=== PATIENT | female | born 1955 | race Caucasian/White ===

== ENCOUNTER 2021-11-10 01:09 | Outpatient (CLI) | payer MEDICARE, BC, SELFPAY ==
[2021-11-10 12:47] LABS: Source Nasal/Nares
[2021-11-10 16:47] LABS: COVID-19 PCR Negative (Negative)
== END 2021-11-10 01:10 | disposition home or self-care (01) ==
LOC: LBO 01:10
PROVIDERS: PCP Internal Medicine; Visit Provider Podiatrist
DX: Z20.822 Contact with and (suspected) exposure to COVID-19 (principal)
CPT/HCPCS: 87635

== ENCOUNTER 2021-11-12 06:16 | Day surgery (SDC) | payer MEDICARE, BC, SELFPAY ==
--- NOTE | 2021-11-11 19:48 | W.PM.HP.N ---
Date of service: 11/12/21 Time of Service: 07:00 History of Present Illness History of Present Illness Chief Complaint: recurrring Abscess, left hallux Narrative: recurring infection and abscess formation of the left hallux with history of prior matrixectomy. [facility] Medical History Acute sinusitis Ankylosis of left knee joint Asthma Bladder dysfunction bladder muscle dysfunction Dystrophia unguium Enthesopathy Fusion of toes hx of right great toe fusion surgery HLD (hyperlipidemia) Lack of energy Overweight Pneumonia Sciatica Surgical History History of foot surgery Hx of hysterectomy Hx of total knee replacement Social History Smoking/Tobacco Use Status: Never Smoking risk assessment performed?: Yes Alcohol Intake: never Drug use: Never Substance use type: does not use Do you feel safe at home: Yes Do you feel safe in your relationship?: Yes Meds Allergies and Home Medications Allergies Allergy/AdvReac Type Severity Reaction Status Date / Time latex Allergy Intermediate Skin Rash Unverified 11/11/21 13:56 Penicillins Allergy Intermediate Anaphylaxis Unverified 11/11/21 13:56 pollen extracts Allergy Intermediate Other (See Unverified 11/11/21 13:56 Comment) shellfish derived Allergy Intermediate Anaphylaxis Unverified 11/11/21 13:56 Tetracyclines Allergy Intermediate Other (See Unverified 11/11/21 13:56 Comment) Home Medications Medication Instructions Recorded Confirmed Type atorvastatin 10 mg tablet 10 mg PO DAILY 11/11/21 11/11/21 History cetirizine 10 mg capsule 10 mg PO DAILY 11/11/21 11/11/21 History estradiol 1 appful VAGINAL DAILY 11/11/21 11/11/21 History famotidine-Ca carb-mag hydrox 10 1 tab PO DAILY PRN 11/11/21 11/11/21 History mg-800 mg-165 mg chewable tablet (Tums Dual Action (famotidine)) fluticasone propionate 50 50 spray INTRANASAL DAILY 11/11/21 11/11/21 History mcg/actuation nasal spray,suspension meloxicam 7.5 mg tablet 7.5 mg PO HS 11/11/21 11/11/21 History multivit with 1 tab PO DAILY 11/11/21 11/11/21 History cmisxykk-uptj-TT-lutein 8 mg iron-400 mcg-300 mcg tablet (Centrum Silver Women) oxybutynin chloride 5 mg tablet 5 mg PO DAILY 11/11/21 11/11/21 History Exam Narrative Exam Narrative: Heads normocephalic eyes PERRLA Hearing is adequate Uvula is mid line Heart had RRR, No murmurs, gallops or rubs noted Lung riley are clear Abdomen is soft, BS x 4 Peripheral pulses are 2/4, SFT < 3 sec. No edema Derm exam: scarring is noted dorsal medially to the proximal nail fold left hallux. No active signs of infection Muscle gps are 5/5 Skeletal exam reveals advanced degenerative changes of the MPJ left foot Neurological exam: grossly intact Impressions: recurring infection left hallux Plan: exploration of the affected region of the left hallux with removal and repair of affected tissues. She is fully aware of the potential for pain, scarring, infection, recurrence, nerve injury, and the need for further surgery. All questions have been answered, informed consent obtained.
[2021-11-12 06:15] VITALS: BP 133/76; PULSE 61; RESP 18; TEMP 36.5; O2SAT 98
[2021-11-12] MEDS: Lactated Ringers 1,000 ML 80 ML IV (06:50)
--- NOTE | 2021-11-12 07:10 | ANES.PREOP_ITS ---
General Info Date of Service Date Performed: 11/12/21 Height: 5 ft 5 in Weight: 76 kg Body Mass Index (BMI): 27.8 Surgical Procedure: Operation Date: 11/12/21 07:40 Proposed Procedure Side Surgeon p I&D Lt Hallux Left Freddy Martin DPM Meds Allergies and Home Medications Allergies Allergy/AdvReac Type Severity Reaction Status Date / Time latex Allergy Intermediate Skin Rash Unverified 11/11/21 13:56 Penicillins Allergy Intermediate Anaphylaxis Unverified 11/11/21 13:56 pollen extracts Allergy Intermediate Other (See Unverified 11/11/21 13:56 Comment) shellfish derived Allergy Intermediate Anaphylaxis Unverified 11/11/21 13:56 Tetracyclines Allergy Intermediate Other (See Unverified 11/11/21 13:56 Comment) Home Medication Medication Instructions Recorded atorvastatin 10 mg tablet 10 mg PO DAILY 11/11/21 cetirizine 10 mg capsule 10 mg PO DAILY 11/11/21 estradiol 1 appful VAGINAL DAILY 11/11/21 famotidine-Ca carb-mag hydrox 10 1 tab PO DAILY PRN 11/11/21 mg-800 mg-165 mg chewable tablet (Tums Dual Action (famotidine)) fluticasone propionate 50 50 spray INTRANASAL DAILY 11/11/21 mcg/actuation nasal spray,suspension meloxicam 7.5 mg tablet 7.5 mg PO HS 11/11/21 multivit with 1 tab PO DAILY 11/11/21 dmpgjyks-jsni-KD-lutein 8 mg iron-400 mcg-300 mcg tablet (Centrum Silver Women) oxybutynin chloride 5 mg tablet 5 mg PO DAILY 11/11/21 Current Visit Medications: Current Medications Generic Name Dose Route Start Last Admin Trade Name Freq PRN Reason Stop Dose Admin Sodium Chloride 500 mls @ 0 mls/hr 11/12/21 06:00 Saline 500ml Bag IV PRN PRN As Directed Clindamycin Phosphate/Dextrose 600 mg in 50 mls @ 100 mls/hr 11/12/21 06:00 Cleocin In D5w IVPB 11/12/21 18:00 PREOP MARCELLUS Ringer's Solution 1,000 mls @ 80 mls/hr 11/12/21 06:00 11/12/21 06:50 IV 12/11/21 23:59 80 mls/hr INFUSION MARCELLUS Administration IV Miscellaneous Supplies 1 each 11/12/21 06:00 Iv Access IV DIRECTED [facility] Povidone Iodine 0 ml 11/12/21 06:00 Povidone-Iodine Soln. 118 Ml Btl TP DIRECTED MARCELLUS Sodium Chloride 0 ml 11/12/21 06:00 Normal Saline Flush 10 Ml Syr IVP PRN PRN Sodium Chloride 0 ml 11/12/21 06:00 Normal Saline 10 Ml Vial IJ 12/11/21 23:59 DIRECTED PRN Sterile Water 0 ml 11/12/21 06:00 Water,Injection,Sterile 10 Ml Vial IJ 12/11/21 23:59 DIRECTED PRN PFSH Medical History Medical History Acute sinusitis Ankylosis of left knee joint Asthma Bladder dysfunction bladder muscle dysfunction Dystrophia unguium Enthesopathy Fusion of toes hx of right great toe fusion surgery HLD (hyperlipidemia) Lack of energy Overweight Pneumonia Sciatica Surgical History Surgical History History of foot surgery Hx of hysterectomy Hx of total knee replacement Tobacco Smoking/Tobacco Use Status: Never Alcohol Alcohol Intake: never Substance Use Substance use: Never Substance use type: does not use Vital Signs and Lab Results Vital Signs Most Recent Vital Signs in EMR: Most Recent Vital Signs Temp Pulse Resp BP Pulse Ox 36.5 C 61 18 133/76 98 11/12/21 06:15 11/12/21 06:15 11/12/21 06:15 11/12/21 06:15 11/12/21 06:15 Lab Results Blood Type / Crossmatch: No Data to Display Complete Blood Count: No Data to Display Complete Metabolic Panel: No Data to Display Liver Function Panel: 2 No Data to Display Coagulation Panel: No Data to Display Cardiac Panel: No Data to Display Arterial Blood Gas: No Data to Display Venous Blood Gas: No Data to Display Pancreas Panel: No Data to Display Thyroid Panel: No Data to Display Infectious Disease: Coronavirus (COVID-19)(PCR) Negative (Negative) 11/10/21 10:16 11/10/21 Coronavirus 2019 Source Nasal/Nares 11/10/21 10:16 11/10/21 Blood Cultures: No Data to Display Toxicology Panel: No Data to Display Anesthesia Assessment and Plan Anesthesia History Personal History: Delayed Emergence Family History: No Family History of Anesthesia Complications Exercise Tolerance Exercise Tolerance: Metabolic Equivalents>4 Pertinent Negatives Pertinent Negatives: No Symptoms of GERD, No Major Cardiovascular Symptoms or Complaints, No Major Pulmonary Symptoms or Complaints and No History of CVA/TIA Cardiac & Pulmonary Exam Cardiac Exam: Normal S1/S2 Heart Sounds Pulmonary Exam: Clear Bilateral Breath Sounds Implantable Cardiac Device Does patient have a Pacemaker or an ICD?: No Airway Exam Known Difficult Airway: No Mallampati Class: 2 Mouth Opening: Normal (> 3cm) Thyromental Distance: Greater than 3 cm Neck Range of Motion: Full ROM Neck Circumference: Normal Teeth Condition: Normal Dentition ASA Classification ASA Score: ASA 2 Emergency Case?: No NPO Status NPO Status: NPO Clears >2 hours, Solids >8 hours Anesthesia Plan Resuscitation Status: Full Code Anesthesia Technique: General Anesthesia Airway Planned: Natural Airway Monitors Used: Standard Monitors
[2021-11-12 07:14] VITALS: BMI 27.8
[2021-11-12] MEDS: CLINDAMYCIN 600 MG/50 ML BAG 100 MG IVPB (07:34)
[2021-11-12] MEDS: Bupivacaine 0.5% Pres-Free 30 ML VIAL (07:41)
--- NOTE | 2021-11-12 07:58 | SKI_PTH ---
PATIENT: Marly Cline LOC: AVE U#:[id number] AGE/SX: 66/F ROOM: RE11/12/[address]: Freddy Martin : 1955 BED: DIS: 11/12/2021 SPEC #: [id number] RECD: 11/12/21 12:49 STATUS: DAVINA REJamia #: [id number] TRAVON: 11/12/21 07:[address]: Freddy Martin DEPT: Surgical Specimen RECD BY: Cathryn Adams ENTERED: 11/12/21 12:50 SP TYPE: CHICO MANRIQUE DR: Milady Borrero Tissues: 1 - SKIN BIOPSY(SHAVE/PUNCH) Procedures: GROSS AND MICRO LEVEL 5 DECALCIFICATION Comments: [id number]
[2021-11-12 08:07] VITALS: BP 126/81; PULSE 69; RESP 16; TEMP 36.1; O2SAT 97
--- NOTE | 2021-11-12 08:28 | PDOC.DSDIS_ITS ---
Discharge Plan Disposition Patient Disposition: HOME Condition: Good Discharge Details Reason For Visit: Exploration with debridement left hallux Attending Provider: Freddy Martin Primary Care Provider: Milady Borrero Home Meds and New Rx's Prescriptions: Continued atorvastatin 10 mg tablet 10 mg PO DAILY 0RF Label Comments: TAKE ONE TABLET BY MOUTH EVERY DAY oxybutynin chloride 5 mg Tablet 5 mg PO DAILY 0RF fluticasone propionate 50 mcg/actuation Ferguson,Suspension 50 spray INTRANASAL DAILY 0RF Tums Dual Action (famotidine) 10-800-165 mg Tablet,Chewable 1 tab PO DAILY PRN0RF cetirizine 10 mg Capsule 10 mg PO DAILY 0RF Centrum Silver Women 8 mg iron-400 mcg-300 mcg Tablet 1 tab PO DAILY 0RF meloxicam 7.5 mg tablet 7.5 mg PO HS 0RF Label Comments: TAKE ONE TABLET BY MOUTH EVERY DAY estradiol 0.01 % (0.1 mg/gram) Cream 1 appful VAGINAL DAILY 0RF Discharge Instructions Stand Alone Forms: Anesthesia Discharge Inst., Veronica'aisha Instructions-DSU, Kobi Rodríguez (DSU) Activity:: Elevate Remove Dressings/Wound Care:: Do Not Remove Shower/Bathe:: Cover Diet:: Normal Diet Discharge Orders Discharge Orders: Discharge Order (Routine); Ordered 11/12/21 Ordered By: Freddy Martin Skin Lesion/Cyst/Abscess Recurring abscess left hallux wound
--- NOTE | 2021-11-12 08:30 | W.PM.OP ---
Operative Note Operative Note DATE OF PROCEDURE: 11/12/21 PRE-OP DIAGNOSIS: Recurring abscess left hallux rule out retained foreign body PROCEDURE: Excision abscess region left hallux with exploration and primary closure SURGEON: Freddy Martin Refer to Anesthesia Record ESTIMATED BLOOD LOSS: 1 PATHOLOGY: other COMPLICATIONS: None Patient was transported to: same day Patient's condition: stable Indications: 66-year-old female with recurring abscess formations with infection affecting the left great toe. If the multiple recurrences she is opted for surgical exploration of the affected site. She understands risk and complications of surgery pertaining to pain, scarring, recurring infection, the potential need for additional and revisional surgeries. No promises have been made to final outcome of surgery. Informed consent has been obtained. Findings: 3 cartilaginous appearing pieces of material were removed from the base of the abscessed region consistent with interval nail formation. These were sent to pathology. Procedure Description: Marly was brought to the operative suite placed in the supine position with the left foot was prepped and draped in the usual sterile podiatric fashion. Anesthesia being achieved and timeout performed for safe surgery attention was directed to the left great toe. Esmarch tourniquet was applied to the base of the toe. Wedge excision was then performed starting proximal to the abscess over the dorsal medial aspect of the great toe just behind the medial nail fold. The incision was a 3-1 (3 times the length to width) so as to afford primary closure. the skin wedge was excised full-thickness no purulence was identified at this point. I Curettage the fatty material and when I got closer towards the tendon structures and periosteal layers a circular piece of material that was almost premature nail/cartilaginous nature was removed. further curettage removed 2 more segments that were almost the same size just going a little deeper down into the wound bed. once this was all curettaged. no purulence was identified, the area was irrigated and curettaged once again removing any debris look pathologic. Once I was satisfied that I removed all retained matter the wound was closed primarily with 3-0 simple interrupted nylon suture interspersed by 4-0 nylon simple interrupted suture. Xeroform gauze fluff compression dressings were applied. the Esmarch bandage was removed and vascularity returned immediately to the great toe. Marly left the OR with vital signs stable vascular status intact and will be followed by myself in the office next week
[2021-11-12 08:35] VITALS: BP 132/70; PULSE 55; RESP 18; TEMP 36; O2SAT 100
--- NOTE | 2021-11-12 09:10 | W.ANESPOSTOP ---
Postoperative Evaluation Date, Time and Location Date Performed: 11/12/21 Time Performed: 08:35 Patient Location: Day Surgery Unit Vital Signs Most Recent Imported Vital Signs: Most Recent Vital Signs Temp Pulse Resp BP Pulse Ox 36 C L 55 L 18 132/70 100 11/12/21 08:35 11/12/21 08:35 11/12/21 08:35 11/12/21 08:35 11/12/21 08:35 Pain Score Most Recent Pain Score: Most Recent Pain Score Pain Level 0 11/12/21 08:07 Assessment Mental Status: Awake (Alert & Oriented to Patient Baseline) Airway and Respiratory Function: Patent airway with normal (patient baseline) respiratory exam Cardiovascular Function: Hemodynamically Stable Hydration Status: Adequately Hydrated Nausea & Vomiting: No Nausea or Vomiting Pain: Pt. Denies Any Pain Peripheral Nerve Block: Patient did not receive a nerve block
== END 2021-11-12 09:00 | disposition home or self-care (01) ==
PROVIDERS: PCP Internal Medicine; Visit Provider Podiatrist
PROC: (CPT 28043; principal; 2021-11-12 07:30)
DX: L02.612 Cutaneous abscess of left foot (principal); E78.5 Hyperlipidemia, unspecified; J45.909 Unspecified asthma, uncomplicated
CPT/HCPCS: 28043; 11765; 88305; 88307; 88311; J1885; J2001; J2405